=== PATIENT | female | born 1940 | race Caucasian/White ===

== ENCOUNTER 2016-12-31 12:32 | Outpatient (CLI) | payer MEDICARE, OTHER | END 2016-12-31 12:33 | disposition home or self-care (01) | DX: Z12.31 Encounter for screening mammogram for malignant neoplasm of breast (principal) ==

== ENCOUNTER 2017-01-28 11:09 | Outpatient (CLI) | payer MEDICARE, OTHER | END 2017-01-28 11:10 | disposition home or self-care (01) | DX: D64.9 Anemia, unspecified (principal); E03.9 Hypothyroidism, unspecified; I10 Essential (primary) hypertension; E78.5 Hyperlipidemia, unspecified; E11.9 Type 2 diabetes mellitus without complications ==

== ENCOUNTER 2017-04-21 14:10 | Outpatient (CLI) | payer MEDICARE, OTHER | END 2017-04-21 14:11 | disposition home or self-care (01) | LOC: LAB.R 14:10 | PROVIDERS: ATTEND Family Medicine | DX: R30.0 Dysuria (principal) | CPT/HCPCS: 87086 ==

== ENCOUNTER 2017-12-22 08:00 | Outpatient (CLI) | payer MEDICARE, OTHER ==
[2017-12-22 19:30] LABS: BASOPHILS # (AUTO) 0.1 10^3/uL (0.0-0.1); BASOPHILS % (AUTO) 0.8 %; EOSINOPHILS # (AUTO) 0.6 10^3/uL (0.0-0.7); EOSINOPHILS % (AUTO) 6.9 %; HGB - HEMOGLOBIN 12.2 g/dL (12.0-16.0); LYMPHOCYTES % (AUTO) 36.7 %; MEAN CORPUSCULAR HEMOGLOBIN 29.7 pg (27.0-31.0); MEAN CORPUSCULAR HGB CONC 32.4 g/dL (32.0-36.0); MEAN CORPUSCULAR VOLUME 91.6 fL (81.0-99.0); MEAN PLATELET VOLUME 8.1 fL (7.9-10.8); MONOCYTES # (AUTO) 0.6 10^3/uL (0.0-1.0); MONOCYTES % (AUTO) 7.1 %; NEUTROPHILS # (AUTO) 3.9 10^3/uL (1.5-6.6); NEUTROPHILS % (AUTO) 48.5 %; PLT - PLATELET COUNT 398 10^3/uL (130-450); RED BLOOD COUNT 4.12 10^6/uL (4.20-5.40); RED CELL DISTRIBUTION WIDTH 14.7 % (12.0-15.0); WHITE BLOOD COUNT 8.1 x10^3/uL (4.8-10.8)
[2017-12-22 19:53] LABS: THYROID STIMULATING HORMONE 5.94 uIU/mL (0.34-5.60)
[2017-12-22 21:17] LABS: FREE T4 (FREE THYROXINE) 0.92 ng/dL (0.58-1.64)
== END 2017-12-22 08:01 | disposition home or self-care (01) ==
LOC: LAB.WCP 08:00
PROVIDERS: ATTEND Family Medicine
DX: E03.9 Hypothyroidism, unspecified (principal); D64.9 Anemia, unspecified
CPT/HCPCS: 36415; 84439; 84443; 85025

== ENCOUNTER 2018-07-10 08:00 | Outpatient (CLI) | payer MEDICARE, OTHER ==
[2018-07-10 19:09] LABS: BASOPHILS # (AUTO) 0.1 10^3/uL (0.0-0.1); BASOPHILS % (AUTO) 2.1 %; EOSINOPHILS # (AUTO) 0.5 10^3/uL (0.0-0.7); EOSINOPHILS % (AUTO) 7.3 %; HGB - HEMOGLOBIN 12.5 g/dL (12.0-16.0); LYMPHOCYTES # (AUTO) 2.3 10^3/uL (1.5-3.5); MEAN CORPUSCULAR HEMOGLOBIN 31.1 pg (27.0-31.0); MEAN CORPUSCULAR VOLUME 94.4 fL (81.0-99.0); MEAN PLATELET VOLUME 7.8 fL (7.9-10.8); MONOCYTES # (AUTO) 0.4 10^3/uL (0.0-1.0); MONOCYTES % (AUTO) 6.2 %; NEUTROPHILS # (AUTO) 3.4 10^3/uL (1.5-6.6); NEUTROPHILS % (AUTO) 50.4 %; PLT - PLATELET COUNT 374 10^3/uL (130-450); RED BLOOD COUNT 4.02 10^6/uL (4.20-5.40); RED CELL DISTRIBUTION WIDTH 13.9 % (12.0-15.0); WHITE BLOOD COUNT 6.7 x10^3/uL (4.8-10.8)
[2018-07-10 20:05] LABS: HB2 TOTAL 13.4 g/dL; HEMOGLOBIN A1C 0.51 g/dL; HEMOGLOBIN A1C % 5.6 % (4.6-6.2)
[2018-07-10 20:26] LABS: ALBUMIN 4.1 g/dL (3.2-5.5); ALBUMIN/GLOBULIN RATIO 1.3 (1.0-2.2); ALKALINE PHOSPHATASE 46 IU/L (42-121); ALT ALANINE AMINOTRANSFERASE 21 IU/L (10-60); AST ASPARTATE AMINOTRANSFERASE 25 IU/L (10-42); BILIRUBIN,TOTAL 0.6 mg/dL (0.2-1.0); BUN - BLOOD UREA NITROGEN 17 mg/dL (6-20); CALCIUM 9.5 mg/dL (8.5-10.3); CARBON DIOXIDE - CO2 27 mmol/L (21-32); CHLORIDE 102 mmol/L (101-111); CHOL/HDL RATIO 3.1 (<4.4); CHOLESTEROL 257 mg/dL; CREATININE 0.5 mg/dL (0.4-1.0); GFR - MDRD 119 (>89); GLUCOSE 79 mg/dL (70-100); HDL CHOLESTEROL 82 mg/dL; LDL CHOLESTEROL,CALCULATED 160 mg/dL; SODIUM 135 mmol/L (135-145); TOTAL PROTEIN 7.3 g/dL (6.7-8.2); VLDL CHOLESTEROL 15 mg/dL
== END 2018-07-10 08:01 | disposition home or self-care (01) ==
LOC: LAB.WCP 08:00
PROVIDERS: ATTEND Family Medicine
DX: E78.5 Hyperlipidemia, unspecified (principal); E11.9 Type 2 diabetes mellitus without complications; E03.9 Hypothyroidism, unspecified; I10 Essential (primary) hypertension
CPT/HCPCS: 36415; 80053; 80061; 82043; 83036; 83721; 84443; 85025

== ENCOUNTER 2018-11-13 10:27 | Outpatient (CLI) | payer MEDICARE, OTHER | END 2018-11-13 23:59 | disposition home or self-care (01) | LOC: LAB.WCP 10:27 | PROVIDERS: ATTEND Family Medicine | DX: E03.9 Hypothyroidism, unspecified (principal) | CPT/HCPCS: 36415; 84443 ==

== ENCOUNTER 2019-01-11 08:00 | Outpatient (CLI) | payer MEDICARE, OTHER ==
[2019-01-11 19:00] LABS: BASOPHILS # (AUTO) 0.1 10^3/uL (0.0-0.1); EOSINOPHILS # (AUTO) 0.4 10^3/uL (0.0-0.7); EOSINOPHILS % (AUTO) 3.3 %; HGB - HEMOGLOBIN 10.5 g/dL (12.0-16.0); LYMPHOCYTES # (AUTO) 2.2 10^3/uL (1.5-3.5); LYMPHOCYTES % (AUTO) 18.7 %; MEAN CORPUSCULAR HEMOGLOBIN 31.1 pg (27.0-31.0); MEAN CORPUSCULAR HGB CONC 34.5 g/dL (32.0-36.0); MEAN CORPUSCULAR VOLUME 90.1 fL (81.0-99.0); MONOCYTES # (AUTO) 1.2 10^3/uL (0.0-1.0); MONOCYTES % (AUTO) 10.4 %; NEUTROPHILS # (AUTO) 7.8 10^3/uL (1.5-6.6); NEUTROPHILS % (AUTO) 66.6 %; PLT - PLATELET COUNT 483 10^3/uL (130-450); RED BLOOD COUNT 3.39 10^6/uL (4.20-5.40); RED CELL DISTRIBUTION WIDTH 13.8 % (12.0-15.0); WHITE BLOOD COUNT 11.7 x10^3/uL (4.8-10.8)
[2019-01-11 19:01] LABS: ALBUMIN 2.6 g/dL (3.2-5.5); ALBUMIN/GLOBULIN RATIO 0.7 (1.0-2.2); BILIRUBIN,TOTAL 0.8 mg/dL (0.2-1.0); CALCIUM 8.6 mg/dL (8.5-10.3); CREATININE 0.5 mg/dL (0.4-1.0); TOTAL PROTEIN 6.1 g/dL (6.7-8.2)
== END 2019-01-11 23:59 | disposition home or self-care (01) ==
LOC: LAB.R 08:00
PROVIDERS: ATTEND Physician Assistant
DX: J18.9 Pneumonia, unspecified organism (principal)
CPT/HCPCS: 80053; 85025

== ENCOUNTER 2019-01-12 10:54 | Outpatient (CLI) | payer MEDICARE, OTHER ==
--- NOTE | 2019-01-12 11:20 | XRAY Report ---
Reason: COUGH Procedure Date: 01/12/2019 Accession Number: [id number] / [id number] Procedure: WCP - Chest 2 View X-Ray CPT Code: 05474 FULL RESULT: EXAM: CHEST RADIOGRAPHY EXAM DATE: 01/12/2019 11:06 AM. CLINICAL HISTORY: COUGH. COMPARISON: None. TECHNIQUE: 2 views. FINDINGS: Lungs/Pleura: Mild posterior right lower lobe consolidation consistent with pneumonia. Lungs otherwise clear. Mediastinum: Heart and mediastinal contours are unremarkable. Other: Moderate S-shaped thoracolumbar scoliosis. IMPRESSION: Mild posterior right lower lobe consolidation most consistent with pneumonia. Consider follow-up examination in 3-4 weeks to ensure resolution. RADIA
== END 2019-01-12 10:55 | disposition home or self-care (01) ==
LOC: DI.WCP 10:54
PROVIDERS: ATTEND Physician Assistant
DX: J18.1 Lobar pneumonia, unspecified organism (principal)
CPT/HCPCS: 71046

== ENCOUNTER 2019-02-03 11:29 | Outpatient (CLI) | payer MEDICARE, OTHER ==
--- NOTE | 2019-02-03 15:02 | XRAY Report ---
Reason: PNEUMONIA Procedure Date: 02/03/2019 Accession Number: [id number] / [id number] Procedure: WCP - Chest 2 View X-Ray CPT Code: 50995 FULL RESULT: EXAM: CHEST RADIOGRAPHY EXAM DATE: 02/03/2019 11:40 AM. CLINICAL HISTORY: Pneumonia. COMPARISON: CHEST 2 VIEW 01/12/2019 10:48 AM. TECHNIQUE: 2 views. FINDINGS: Lungs/Pleura: No focal opacities evident. No pleural effusion. No pneumothorax. Normal volumes. Mediastinum: There is question of increasing fullness in the right hilar region on the lateral radiograph. The cardiac silhouette is unchanged in size. Other: None. IMPRESSION: No acute airspace disease is detected. Increasing fullness of the right hilar region, possibly adenopathy. RADIA
== END 2019-02-03 11:30 | disposition home or self-care (01) ==
LOC: DI.WCP 11:29
PROVIDERS: ATTEND Physician Assistant
DX: J18.9 Pneumonia, unspecified organism (principal)
CPT/HCPCS: 71046

== ENCOUNTER 2019-02-10 14:49 | Outpatient (CLI) | payer MEDICARE, OTHER ==
--- NOTE | 2019-02-11 10:02 | CT Report ---
Reason: LYMPHADENOPATHY Procedure Date: 02/10/2019 Accession Number: [id number] / [id number] Procedure: CT - CHEST WO CPT Code: FULL RESULT: EXAM: CT CHEST EXAM DATE: 02/10/2019 02:59 PM. CLINICAL HISTORY: Lymphadenopathy. COMPARISONS: CHEST 2 VIEW 02/03/2019 11:25 AM CHEST 2 VIEW 01/12/2019 10:48 AM. TECHNIQUE: Routine helical CT imaging was performed through the chest. IV contrast: None. Reconstructions: Coronal and sagittal. In accordance with CT protocol optimization, one or more of the following dose reduction techniques were utilized for this exam: automated exposure control, adjustment of mA and/or KV based on patient size, or use of iterative reconstructive technique. FINDINGS: Lungs/Pleura: Right lun. In the medial right lower lobe just posterior to the hilum, there is a 14 x 15 x 13 mm high density nodule. Reference series 4 image 34. 2. 4 mm semisolid nodule in the central right lower lobe, series 4 image 34. 3. 4 mm oval semisolid nodule, series 4 image 35, posterior right lower lobe. 4. Small amount of tree-in-bud type density in the inferior right lower lobe, series 4 image 45. Nonspecific wispy density in the posterior medial right lower lung, series 4 image 35. Recent infiltrate in the right lower lobe by chest x-ray 01/12/2019, largely resolved by chest x-ray 02/03/2019 is acknowledged. Left lung: No masses/nodules. No bronchial thickening or edema. Pulmonary vasculature is normal. No pericardial or pleural effusion. No pneumothorax. Mediastinum: Mild coronary artery calcium in the right coronary artery and left anterior descending coronary artery. No adenopathy or masses. The heart and great vessels are normal. Bones: Unremarkable. Visualized Abdomen: 1. Loop of stool-filled colon is superimposing anterior to the liver and anterior subdiaphragmatic region. 2. 2 subcentimeter exophytic low-density structures superior left kidney measuring simple fluid density likely incidental cysts. Other: None. IMPRESSION: 1. Multiple findings in the right lower lobe as described most significant for a 15 mm irregular nodule in the medial lower lobe just posterior to the hilum. Recent resolved right lower lobe infiltrate is acknowledged and findings today are nonspecific between residual changes of resolving infiltrate versus true pulmonary nodule/potential malignancy. Appropriate action is recommended. Consider short interval surveillance imaging with repeat CT in 8-12 weeks as an alternative to percutaneous biopsy. 2. No significant mediastinal or hilar adenopathy. RADIA
== END 2019-02-10 14:50 | disposition home or self-care (01) ==
LOC: DI 14:49
PROVIDERS: ATTEND Physician Assistant
DX: R91.8 Other nonspecific abnormal finding of lung field (principal)
CPT/HCPCS: 71250

== ENCOUNTER 2019-06-07 11:52 | Outpatient (CLI) | payer MEDICARE, OTHER ==
--- NOTE | 2019-06-08 16:52 | CT Report ---
Reason: PULMONARY NODULE Procedure Date: 06/07/2019 Accession Number: [id number] / [id number] Procedure: CT - CHEST WO CPT Code: FULL RESULT: EXAM: CT CHEST EXAM DATE: 06/07/2019 12:45 PM. CLINICAL HISTORY: PULMONARY NODULE. COMPARISONS: CHEST W/O 02/10/2019 2:59 PM. TECHNIQUE: Routine helical CT imaging was performed through the chest. IV contrast: None. Reconstructions: Coronal and sagittal. In accordance with CT protocol optimization, one or more of the following dose reduction techniques were utilized for this exam: automated exposure control, adjustment of mA and/or KV based on patient size, or use of iterative reconstructive technique. FINDINGS: Lungs/Pleura: Lung nodule: 1. Right lower lobe, 5 mm, image 32 of series 4, unchanged. The previously demonstrated right lower lobe lung nodules and tree-in-bud opacities are not identified on the current study. There is no focal infiltrate, pleural effusion or pneumothorax seen. Mediastinum: Visible but nonenlarged mediastinal lymph nodes are noted. There is atherosclerosis of the aorta and coronary arteries. Bones: There are degenerative changes of the thoracic spine. There is scoliosis thoracic spine convex to the right. Visualized Abdomen: The visualized upper abdominal organs demonstrate a normal noncontrast CT appearance. Other: None. IMPRESSION: Stable right lower lobe lung nodule. Interval resolution of the previously demonstrated right lower lobe lung nodules and tree-in-bud opacities. No new infiltrate. Atherosclerosis of the aorta and coronary arteries. RADIA
== END 2019-06-07 11:53 | disposition home or self-care (01) ==
LOC: DI 11:52
PROVIDERS: ATTEND Family Medicine
DX: R91.1 Solitary pulmonary nodule (principal); I70.0 Atherosclerosis of aorta
CPT/HCPCS: 71250

== ENCOUNTER 2019-08-31 09:57 | Outpatient (CLI) | payer MEDICARE, OTHER ==
[2019-08-31 10:46] LABS: BASOPHILS # (AUTO) 0.1 10^3/uL (0.0-0.1); BASOPHILS % (AUTO) 1.1 %; EOSINOPHILS # (AUTO) 0.5 10^3/uL (0.0-0.7); EOSINOPHILS % (AUTO) 4.9 %; HGB - HEMOGLOBIN 12.3 g/dL (12.0-16.0); LYMPHOCYTES # (AUTO) 2.6 10^3/uL (1.5-3.5); MEAN CORPUSCULAR HEMOGLOBIN 31.3 pg (27.0-31.0); MEAN CORPUSCULAR HGB CONC 32.9 g/dL (32.0-36.0); MEAN CORPUSCULAR VOLUME 95.2 fL (81.0-99.0); MEAN PLATELET VOLUME 9.2 fL (7.9-10.8); MONOCYTES # (AUTO) 0.7 10^3/uL (0.0-1.0); NEUTROPHILS # (AUTO) 5.4 10^3/uL (1.5-6.6); NEUTROPHILS % (AUTO) 57.7 %; PLT - PLATELET COUNT 372 10^3/uL (130-450); RED BLOOD COUNT 3.93 10^6/uL (4.20-5.40); RED CELL DISTRIBUTION WIDTH 13.2 % (12.0-15.0); WHITE BLOOD COUNT 9.3 x10^3/uL (4.8-10.8)
[2019-08-31 11:01] LABS: CALCIUM 9.6 mg/dL (8.5-10.3); CREATININE 0.7 mg/dL (0.4-1.0)
[2019-08-31 11:02] LABS: BILIRUBIN,URINE NEGATIVE (NEGATIVE); GLUCOSE, URINE (UA) NEGATIVE (NEGATIVE); KETONES,URINE (UA) NEGATIVE (NEGATIVE); LEUKOCYTE ESTERASE, URINE TRACE (NEGATIVE); NITRITE,URINE NEGATIVE (NEGATIVE); OCCULT BLOOD,URINE TRACE-LYSE (NEGATIVE); PROTEIN,URINE NEGATIVE (NEGATIVE); UROBILINOGEN,URINE 0.2 (NORMAL) E.U./dL (NORMAL)
[2019-08-31 11:08] LABS: HB2 TOTAL 12.5 g/dL; HEMOGLOBIN A1C 0.51 g/dL; HEMOGLOBIN A1C % 5.9 % (4.6-6.2)
[2019-08-31 11:19] LABS: CLARITY,URINE CLEAR (CLEAR)
[2019-08-31 11:22] LABS: RBC,URINE 0-5 /HPF (0-5)
[2019-08-31 11:23] LABS: BACTERIA,URINE Moderate /HPF (None Seen); MUCUS,URINE Few Strands; SQUAMOUS EPITHELIAL CELL,UR RARE Squamous (<= Few)
== END 2019-08-31 09:58 | disposition home or self-care (01) ==
LOC: LAB 09:57
PROVIDERS: ATTEND Orthopaedic Surgery
DX: Z01.818 Encounter for other preprocedural examination (principal); R73.9 Hyperglycemia, unspecified; N39.9 Disorder of urinary system, unspecified; Z13.1 Encounter for screening for diabetes mellitus
CPT/HCPCS: 36415; 80048; 81001; 81003; 83036; 85025; 87086; 87181; 93005

== ENCOUNTER 2019-10-08 12:35 | Outpatient (CLI) | payer MEDICARE, OTHER | END 2019-10-08 12:36 | disposition home or self-care (01) | LOC: LAB.N 12:35 | PROVIDERS: ATTEND Family Medicine | DX: E03.9 Hypothyroidism, unspecified (principal) | CPT/HCPCS: 36415; 84443 ==

== ENCOUNTER 2019-10-11 14:57 | Outpatient (CLI) | payer MEDICARE, OTHER ==
--- NOTE | 2019-10-12 03:35 | CT Report ---
Reason: PULMONARY NODULE Procedure Date: 10/11/2019 Accession Number: [id number] / [id number] Procedure: CT - CHEST WO CPT Code: Final Report FULL RESULT: EXAM: CT CHEST EXAM DATE: 10/11/2019 03:13 PM. CLINICAL HISTORY: PULMONARY NODULE. COMPARISONS: CHEST W/O 06/07/2019 12:36 PM CHEST W/O 02/10/2019 2:59 PM. TECHNIQUE: Routine helical CT imaging was performed through the chest. IV contrast: None. Reconstructions: Coronal and sagittal. In accordance with CT protocol optimization, one or more of the following dose reduction techniques were utilized for this exam: automated exposure control, adjustment of mA and/or KV based on patient size, or use of iterative reconstructive technique. FINDINGS: Lungs/Pleura: The small semisolid pulmonary in the right lower lobe contiguous with the pleura noted on series 6 image 55 is slightly more conspicuous when compared to the 2 prior studies. On the study from January 2019 this small lesion was approximately 3.7 mm. On the study from May 2019 this lesion was measured at 4.6 mm. The lungs are otherwise clear. There are no new nodules nor developing infiltrates. There are no pleural effusions. Mediastinum: Normal. No adenopathy or masses. The heart and great vessels are normal. There are atherosclerotic vascular coronary arteries. Bones: Unremarkable. Visualized Abdomen: Unremarkable. Other: None. IMPRESSION: 1. Slight, perceptible and measurable enlargement of the small nodule in the right posterior lower lobe. Particularly if the patient has significant risk factors this must be viewed with a relatively high degree of concern. RADIA
== END 2019-10-11 14:58 | disposition home or self-care (01) ==
LOC: DI 14:57
PROVIDERS: ATTEND Family Medicine
DX: R91.1 Solitary pulmonary nodule (principal)
CPT/HCPCS: 71250

== ENCOUNTER 2019-11-29 09:32 | Outpatient (CLI) | payer MEDICARE, OTHER ==
[2019-11-29 10:20] LABS: BASOPHILS # (AUTO) 0.1 10^3/uL (0.0-0.1); EOSINOPHILS # (AUTO) 0.8 10^3/uL (0.0-0.7); EOSINOPHILS % (AUTO) 8.2 %; HGB - HEMOGLOBIN 11.4 g/dL (12.0-16.0); LYMPHOCYTES # (AUTO) 2.4 10^3/uL (1.5-3.5); LYMPHOCYTES % (AUTO) 25.7 %; MEAN CORPUSCULAR HEMOGLOBIN 29.4 pg (27.0-31.0); MEAN CORPUSCULAR HGB CONC 31.3 g/dL (32.0-36.0); MEAN CORPUSCULAR VOLUME 93.8 fL (81.0-99.0); MEAN PLATELET VOLUME 9.1 fL (7.9-10.8); MONOCYTES # (AUTO) 0.6 10^3/uL (0.0-1.0); MONOCYTES % (AUTO) 6.3 %; NEUTROPHILS # (AUTO) 5.4 10^3/uL (1.5-6.6); NEUTROPHILS % (AUTO) 58.5 %; PLT - PLATELET COUNT 415 10^3/uL (130-450); RED BLOOD COUNT 3.88 10^6/uL (4.20-5.40); RED CELL DISTRIBUTION WIDTH 13.5 % (12.0-15.0); WHITE BLOOD COUNT 9.3 x10^3/uL (4.8-10.8)
== END 2019-11-29 09:33 | disposition home or self-care (01) ==
LOC: LAB 09:32
PROVIDERS: ATTEND Orthopaedic Surgery
DX: Z96.653 Presence of artificial knee joint, bilateral (principal)
CPT/HCPCS: 36415; 85025; 85651; 86140

== ENCOUNTER 2020-10-19 08:00 | Outpatient (CLI) | payer MEDICARE, OTHER ==
[2020-10-19 18:48] LABS: BASOPHILS # (AUTO) 0.1 10^3/uL (0.0-0.1); BASOPHILS % (AUTO) 0.9 %; EOSINOPHILS # (AUTO) 0.6 10^3/uL (0.0-0.7); HGB - HEMOGLOBIN 12.1 g/dL (12.0-16.0); LYMPHOCYTES # (AUTO) 2.8 10^3/uL (1.5-3.5); MEAN CORPUSCULAR HEMOGLOBIN 29.2 pg (27.0-31.0); MEAN CORPUSCULAR HGB CONC 30.6 g/dL (32.0-36.0); MEAN CORPUSCULAR VOLUME 95.4 fL (81.0-99.0); MEAN PLATELET VOLUME 9.7 fL (7.9-10.8); MONOCYTES # (AUTO) 0.7 10^3/uL (0.0-1.0); NEUTROPHILS # (AUTO) 5.4 10^3/uL (1.5-6.6); NEUTROPHILS % (AUTO) 56.8 %; PLT - PLATELET COUNT 399 10^3/uL (130-450); RED BLOOD COUNT 4.14 10^6/uL (4.20-5.40); WHITE BLOOD COUNT 9.6 x10^3/uL (4.8-10.8)
[2020-10-19 19:18] LABS: CREATININE,URINE 87.6 mg/dL
[2020-10-19 19:19] LABS: ALBUMIN 4.1 g/dL (3.2-5.5); ALBUMIN/GLOBULIN RATIO 1.2 (1.0-2.2); ALKALINE PHOSPHATASE 52 IU/L (42-121); ALT ALANINE AMINOTRANSFERASE 20 IU/L (10-60); AST ASPARTATE AMINOTRANSFERASE 21 IU/L (10-42); BILIRUBIN,TOTAL 0.7 mg/dL (0.2-1.0); BUN - BLOOD UREA NITROGEN 21 mg/dL (6-20); CALCIUM 10.1 mg/dL (8.5-10.3); CARBON DIOXIDE - CO2 28 mmol/L (21-32); CHLORIDE 101 mmol/L (101-111); CHOL/HDL RATIO 4.3 (<4.4); CHOLESTEROL 307 mg/dL; CREATININE 0.7 mg/dL (0.4-1.0); GLUCOSE 98 mg/dL (70-100); HDL CHOLESTEROL 72 mg/dL; LDL CHOLESTEROL,CALCULATED 218 mg/dL; TOTAL PROTEIN 7.5 g/dL (6.7-8.2); VLDL CHOLESTEROL 17 mg/dL
[2020-10-19 19:30] LABS: MICROALBUMIN,URINE < 0.2 mg/dL (0-300.0)
[2020-10-19 21:02] LABS: HEMOGLOBIN A1c% 6.1 % (4.27-6.07)
== END 2020-10-19 23:59 | disposition home or self-care (01) ==
LOC: LAB.WCP 08:00
PROVIDERS: ATTEND Internal Medicine
DX: E11.9 Type 2 diabetes mellitus without complications (principal)
CPT/HCPCS: 36415; 80053; 80061; 82043; 82570; 83036; 83721; 84443; 85025

== ENCOUNTER 2021-10-19 08:00 | Outpatient (CLI) | payer MEDICARE, OTHER ==
[2021-10-19 12:52] LABS: CALCIUM 9.6 mg/dL (8.5-10.3); CREATININE 0.6 mg/dL (0.4-1.0); POTASSIUM 3.9 mmol/L (3.5-5.0)
[2021-10-19 12:59] LABS: THYROID STIMULATING HORMONE 2.83 uIU/mL (0.34-5.60)
[2021-10-19 13:22] LABS: ESTIMATED AVERAGE GLUCOSE 134 mg/dL (70-100); HEMOGLOBIN A1c% 6.3 % (4.27-6.07)
== END 2021-10-19 23:59 | disposition home or self-care (01) ==
LOC: LAB.WCP 08:00
PROVIDERS: ATTEND Internal Medicine
DX: E11.9 Type 2 diabetes mellitus without complications (principal); E05.01 Thyrotoxicosis with diffuse goiter with thyrotoxic crisis or storm
CPT/HCPCS: 36415; 80048; 83036; 84443

== ENCOUNTER 2022-06-05 09:17 | Outpatient (CLI) | payer MEDICARE, OTHER ==
[2022-06-05 13:14] LABS: ALBUMIN 4.1 g/dL (3.2-5.5); ALBUMIN/GLOBULIN RATIO 1.2 (1.0-2.2); ALKALINE PHOSPHATASE 42 IU/L (42-121); ALT ALANINE AMINOTRANSFERASE 22 IU/L (10-60); AST ASPARTATE AMINOTRANSFERASE 22 IU/L (10-42); BILIRUBIN,TOTAL 0.7 mg/dL (0.2-1.0); BUN - BLOOD UREA NITROGEN 20 mg/dL (6-20); CARBON DIOXIDE - CO2 28 mmol/L (21-32); CHLORIDE 101 mmol/L (101-111); CHOLESTEROL 277 mg/dL; CREATININE 0.6 mg/dL (0.4-1.0); GFR - MDRD 96 (>89); GLUCOSE 100 mg/dL (70-100); HDL CHOLESTEROL 70 mg/dL; LDL CHOLESTEROL,CALCULATED 191 mg/dL; LDL/HDL RATIO 2.7 (<4.4); POTASSIUM 4.3 mmol/L (3.5-5.0); SODIUM 138 mmol/L (135-145); TOTAL PROTEIN 7.5 g/dL (6.7-8.2); TRIGLYCERIDES 82 mg/dL; VLDL CHOLESTEROL 16 mg/dL
[2022-06-05 13:22] LABS: MICROALBUM/CREATININE RATIO,UR 7.7 ug/mg (<30.0); MICROALBUMIN,URINE 0.3 mg/dL (0-300.0); THYROID STIMULATING HORMONE 1.35 uIU/mL (0.34-5.60)
[2022-06-05 13:45] LABS: ESTIMATED AVERAGE GLUCOSE 128 mg/dL (70-100); HEMOGLOBIN A1c% 6.1 % (4.27-6.07)
== END 2022-06-05 09:18 | disposition home or self-care (01) ==
LOC: LAB.N 09:17
PROVIDERS: ATTEND Internal Medicine
DX: E11.9 Type 2 diabetes mellitus without complications (principal); E78.5 Hyperlipidemia, unspecified; E05.01 Thyrotoxicosis with diffuse goiter with thyrotoxic crisis or storm
CPT/HCPCS: 36415; 80053; 80061; 82043; 82570; 83036; 83721; 84443

== ENCOUNTER 2023-02-18 12:34 | Outpatient (CLI) | payer MEDICARE, OTHER | END 2023-02-18 12:35 | disposition home or self-care (01) | LOC: DI 12:34 | PROVIDERS: ATTEND Internal Medicine | DX: R06.09 Other forms of dyspnea (principal); R53.83 Other fatigue; I51.7 Cardiomegaly | CPT/HCPCS: 93306 ==

== ENCOUNTER 2023-04-11 10:47 | Outpatient (CLI) | payer MEDICARE, OTHER ==
--- NOTE | 2023-04-11 11:39 | Sleep Patient Instructions ---
Sleep Center Visit Summary - Patient Visit Information Reason for Visit: Initial consult for evaluation of sleep disordered breathing and other sleep issues. - Patient Instructions Instructions Attached: Sleep Study, Sleep Clinic Visit Additional Instructions: You will be completing a sleep study, either an in-lab polysomnography (PSG) or home sleep study (HST). You will follow-up in the sleep care office after the sleep study is completed to hear the results and talk about therapy, if needed. You will be called by our office staff to schedule this appointment, but you may contact us with any questions. - Clinic Information Contact: [facility] [address] [place] [address] [email or web address] T: [phone]
--- NOTE | 2023-04-11 11:45 | SLEEP CARE CONSULTATION ---
Information from patient questionnaire entered by Florencia Champion. I have reviewed and concur with the information entered by Florencia Champion. This document represents the service I personally performed and the decisions made by me, Romina Lobo ARNP. History of Present Illness Service Date and Time: 04/11/2023 1047 Reason for Visit: New patient Chief Complaint: reports: Observed pauses in breathing, Fatigue Date of Onset: SNORING 25+YRS FATIGUE 2YRS Usual bedtime: 2200 Time it takes to fall asleep: 5 Snores at night: Yes Observed to quit breathing while asleep: Yes Sleeps alone due to snoring: No Number of times waking at night: 2 Reasons for waking at night: reports: Bathroom. denies: Choking, Snoring, Gasping for air Toss, Turn, or Twitch while sleeping: No Recalls having dreams: No Usually gets out of bed at: 0730 Feels refreshed in the morning: Yes Morning headache: No Sleepy or fatigued during the day: Yes Ever fallen asleep while driving: No Takes day naps: No (on if watches new at 5:30 PM or so) Dreams during day naps: No Prior sleep studies: No Additional HPI information: I had the pleasure of seeing SUSAN PACHECO today regarding the possibility of her having a sleep disorder. Her current complaints are snoring and fatigue. She states that she has been very tired lately and can't do as much as she used to. She states that they have done a lot of tests and not found any cause at this point. She has been snoring for many years and has had pauses in breathing noted by family. Her fatigue has come in in the last 2 years. She states it takes her a while to get moving in the morning, sometimes she is refreshed, it depends on prior day's activity. - Parasomnia Symptoms Ever been unable to move upon waking from sleep: No Walks in sleep: No Talks in sleep: No Ever acted out dreams in sleep: No Ever felt weak in the knees when startled or emotional: No Bothered by creepy, crawly, restless sensations in legs: No Problems with memory or concentration: Yes (memory, has reduce "point recall") Subjective Initial [place] Sleepiness Scale score: 2 (03/19/23) Past Medical History Past Medical History: reports: Hypertension, Arrythmia (atrial fibrillation (controlled), occasional pvcs), Hypothyroidism (hx of ablation), Other (PRE DIABETIC) Social History The patient's occupation is a RE. Patient is / and lives in . Have you smoked in the past 12 months: No Years of smokin Quit date: 1974 Alcohol use: Yes Alcohol amount and frequency: 1 BEER MAYBE 2 X MONTH Caffeine use: Yes Caffeine amount and frequency: 6 CUPS QD Family History Family history of sleep disordered breathing: Yes Family Hx Sleep Apnea: Father: Snoring, Sleep apnea - Untreated Allergies and Home Medications Known drug allergies: No (old medication - Darvon) Drug allergies reviewed: Yes Home medication list reviewed: Yes (see updated list in EMR) Allergy and home medication list: Allergies propoxyphene HCl * [From Darvon] Allergy (Verified 04/10/23 11:43) Unknown Review of Systems Weight loss over past 5 years: 5 Cardiovascular: reports: high blood pressure, irregular heart rate or pulse Respiratory: reports: wheeze Urinary: reports: incontinence, frequency, urgency Neurological: reports: gait or balance problems Ear/Nose/Throat: denies: tonsillectomy Endocrine: reports: thyroid disease Musculoskeletal: reports: mobility problems (use cane after Knee surgery) Immunologic: reports: sneezing, allergies to food or environment (seasonal) Physical Exam Vital signs obtained and entered by: FLORENCIA Pederson MA Blood Pressure: 126/74 (LEFT ARM) Cuff size: regular Heart Rate: 73 O2 Saturation: 99 Height: 5 ft 8 in Weight: 192 lb 12.8 oz Body Mass Index: 29.2 BMI Classification: Overweight Neck circumference: 17 Mouth and throat: narrow oropharynx Soft palate: normal Hard palate: normal Uvula: normal Uvula visualization: 50% Mallampati Class II Tongue: normal in size Tonsils: small Neck: normal w/o lymphadenopathy or thyromegaly Heart: regular rate and rhythm Lungs: clear bilaterally Impression and Plan 1. Suspected Obstructive Sleep Apnea-Hypopnea Syndrome, as suggested by a history of loud and irregular snoring, observed cessation of breath while asleep, unrefreshed sleep and cognitive impairment. Narrow oropharynx and obesity are common predisposing factors for obstructive sleep apnea-hypopnea syndrome. I recommend proceeding to polysomnography to confirm the diagnosis and to assess severity. If the patient has significant sleep disordered breathing, a manual CPAP titration study will also be performed to find the optimal treatment pressure. I informed the patient of what the sleep studies involve and after some discussion, obtained agreement to proceed. The pathophysiology of obstructive sleep apnea-hypopnea syndrome was discussed with the patient and health risks of cardiovascular and cerebrovascular disease if not treated. Risks of drowsy driving discussed in detail and patient advised to avoid long distance driving and to meat puller at the first sign of drowsiness. Patient agreed to plan. * Schedule polysomnography +- manual CPAP titration study and return in 1-2 weeks after the study to discuss result and initiate therapy. * Avoid long distance driving or driving when feeling sleepy. * Avoid alcohol, sedative and muscle relaxant around bedtime. * Attempt to lose weight. * Review instructions provided by trained office staff on how to prepare for the sleep study. * Return for follow-up after sleep study completed. Counseling Topics: Weight loss health impact Visit Type: In Office Time Spent with Patient (minutes): 35 Provider Statement: I spent 100% of the Face to Face Visit with the patient with greater than 50% spent counseling the patient and coordination of care.
[2023-04-11 11:50] VITALS: BP 126/74
== END 2023-04-11 10:48 | disposition home or self-care (01) ==
LOC: SC 10:47
PROVIDERS: ATTEND Nurse Practitioner Family
DX: R53.83 Other fatigue (principal); R06.83 Snoring; G47.8 Other sleep disorders; R06.81 Apnea, not elsewhere classified; I10 Essential (primary) hypertension; I48.91 Unspecified atrial fibrillation; E66.3 Overweight; Z68.29 Body mass index [BMI] 29.0-29.9, adult
CPT/HCPCS: 99203; G0463; 99212

== ENCOUNTER 2023-05-26 20:42 | Outpatient (CLI) | payer MEDICARE, OTHER | END 2023-05-26 20:43 | disposition home or self-care (01) | LOC: SC 20:42 | PROVIDERS: ATTEND Nurse Practitioner Family | DX: G47.33 Obstructive sleep apnea (adult) (pediatric) (principal); Z68.29 Body mass index [BMI] 29.0-29.9, adult | CPT/HCPCS: 95810 ==

== ENCOUNTER 2023-12-03 12:44 | Outpatient (CLI) | payer MEDICARE, OTHER ==
--- NOTE | 2023-12-03 13:16 | Sleep Patient Instructions ---
Sleep Center Visit Summary - Patient Visit Information Reason for Visit: Follow up to discuss treatment options - Patient Instructions Instructions Attached: CPAP Additional Instructions: You are being started on CPAP therapy with pressure setting at 4-15 cmH2O. You will need to call the sleep care office to set up your follow up once you have your APAP machine and we will schedule a visit to check compliance and response to therapy at that time. You may call the office with any concerns about pressure feeling too low or too much for adjustment, if needed. You should contact DME supplier for any questions or concerns about mask or equipment. Please call office to schedule a follow up appointment in the sleep care office one month after obtaining new device. - Clinic Information Contact: [facility] [address] [place] [address] [email or web address] T: [phone]
--- NOTE | 2023-12-03 13:21 | SLEEP CARE CONSULTATION ---
Information from patient questionnaire entered by Randa Champion. I have reviewed and concur with the information entered by Randa Champion. This document represents the service I personally performed and the decisions made by me, Romina Lobo ARNP. History of Present Illness Service Date and Time: 12/03/2023 1244 Previous diagnosis: Moderate, Obstructive Sleep Apnea-Hypopnea Syndrome AHI: 23.5 (04/2023) Reason for follow up: other (F/U TO DISCUSS OPTIONS) Prior sleep studies: No Type of Sleep Study: Polysomnography (COMPLETED 05/26/23) HPI additional information: SUSAN PACHECO was diagnosed to have moderate, AHI 23.5, obstructive sleep apnea-hypopnea syndrome and returned today for seven month follow-up. She said there was a delay in getting approval from insurance and she still has not received a CPAP. Sleep Study - Results Type of Sleep Study: Polysomnography (COMPLETED 05/26/23) Prior sleep studies: No Subjective Initial [place] Sleepiness Scale score: 2 (03/19/23) Allergies and Home Medications Known drug allergies: Yes (as listed) Drug allergies reviewed: Yes Home medication list reviewed: Yes (no changes) Allergy and home medication list: Allergies propoxyphene HCl * [From Darvon] Allergy (Verified 12/01/23 09:02) Unknown Review of Systems Review of systems same as previous: Yes (NO CHANGE ) Physical Exam Vital signs obtained and entered by: RANDA Pederson MA Blood Pressure: 141/78 (RIGHT ARM) Cuff size: regular Heart Rate: 76 O2 Saturation: 98 Height: 5 ft 8 in Weight: 194 lb 3.2 oz Body Mass Index: 29.5 BMI Classification: Overweight Impression and Plan 1. Obstructive Sleep Apnea-Hypopnea Syndrome, moderate. She returns the office to discuss her options for treatment. She had decided previously to go ahead with CPAP therapy but there was a delay and she was unable to get or start with CPAP. I will write another order to get her started and hope that we can just do an APAP trial rather than restarting with a another sleep study. I did go o alberto with her that there is possibility that we may have to order another study before we can move on with setting her up with the CPAP. She voiced understanding. The patient will be started on nasal autoCPAP therapy with pressure set at 4-15 cmH2O. Compliance guidelines also reviewed. A copy of compliance guidelines will be given for reference at check out. I also reviewed the benefit of consistent device use of CPAP for hypertension, arrhythmia and pre-diabetes. 2. Overweight, unspecified. Currently patients BMI is 29.5. Obesity increases the risk of apnea, CPAP pressure requirements and overall health risks especially cardiovascular and diabetes. Thus patient is advised to lose weight. * Nasal auto CPAP therapy, pressure at 4-15 cm H2O. * Attempt to lose weight. * Avoid alcohol consumption near bedtime. * Avoid supine sleep until using CPAP. * The patient is again cautioned about driving until sleepiness completely resolves. * Return one month after CPAP obtained. I will assess response to therapy and compliance at that time. Counseling Topics: Weight loss health impact Prescriptions: Auto CPAP Follow up with Sleep Care in: other (compliance visit) Visit Type: In Office Time Spent with Patient (minutes): 23 Provider Statement: I spent 100% of the Face to Face Visit with the patient with greater than 50% spent counseling the patient and coordination of care.
[2023-12-03 13:50] VITALS: BP 141/78; O2SAT 98
== END 2023-12-03 12:45 | disposition home or self-care (01) ==
LOC: SC 12:44
PROVIDERS: ATTEND Nurse Practitioner Family
DX: G47.33 Obstructive sleep apnea (adult) (pediatric) (principal); E66.3 Overweight; Z68.29 Body mass index [BMI] 29.0-29.9, adult
CPT/HCPCS: 99213; G0463; 99212

== ENCOUNTER 2024-03-12 11:30 | Outpatient (CLI) | payer MEDICARE, OTHER ==
--- NOTE | 2024-03-12 11:56 | Sleep Patient Instructions ---
Sleep Center Visit Summary - Patient Visit Information Reason for Visit: First compliance follow-up - Patient Instructions Additional Instructions: You were here for follow up of CPAP therapy. You will be continued on CPAP therapy with pressure at 10-12 cmH2O. Please let us know if the pressure change is uncomfortable and we can make further adjustments of the pressure. You should follow up with sleep care in 1-2 months. You may contact us sooner for any questions or concerns. - Clinic Information Contact: [facility] [address] [place] [address] [email or web address] T: [phone]
--- NOTE | 2024-03-12 12:02 | SLEEP CARE CONSULTATION ---
Information from patient questionnaire entered by Florencia Champion. I have reviewed and concur with the information entered by Florencia Champion. This document represents the service I personally performed and the decisions made by , Romina Lobo ARNP. History of Present Illness Service Date and Time: 03/12/2024 1130 Previous diagnosis: Moderate, Obstructive Sleep Apnea-Hypopnea Syndrome AHI: 23.5 (04/2023) Reason for follow up: first compliance Equipment type: CPAP (RESMED Airsense 11, s/u 12/22/2023) Equipment obtained from: Other ([facility]) Mask style: Full face Mask brand: Respironics (Dreamwear) Backup mask available: No Prior sleep studies: No Type of Sleep Study: Polysomnography (COMPLETED 05/26/23) HPI additional information: SUSAN PACHECO was diagnosed to have moderate, AHI 23.5, obstructive sleep apnea-hypopnea syndrome and returned today for CPAP therapy first compliance follow-up. Sleep Study - Results Type of Sleep Study: Polysomnography (COMPLETED 05/26/23) Prior sleep studies: No CPAP Compliance Data - Data Reviewed with Patient Average duration of nightly device use: 5 HRS 52 MINS Compliance rate %: 70 (01/10/24-02/08/24; 30/30 days used) Current pressure setting (cmH2O): 4-15 (median 7.1, avg 10.4, max 11.8) Average residual AHI: 5.7 (unknown 2.3) Central apnea: 0.4 Obstructive apnea: 1.4 Hypopnea: 1.5 Average large leak: 16.7 L/min Subjective Patient concerns: reports: mask discomfort (mask fit). denies: aerophagia, air blowing in eyes, mask leak noise, condensation in mask/hose, nasal congestion, dry mouth, nose, throat, epistaxis Observed to snore while using device: No Current pressure setting perceived as: comfortable On therapy, patient: reports: other (no big change with sleep quality or restlessness). denies: drowsiness while driving Initial [place] Sleepiness Scale score: 2 (03/19/23) Current [place] Sleepiness Scale score: 3 (03/12/24) Allergies and Home Medications Known drug allergies: Yes (as listed) Drug allergies reviewed: Yes Home medication list reviewed: Yes (no changes) Allergy and home medication list: Allergies propoxyphene HCl * [From Darvon] Allergy (Verified 03/10/24 16:06) Unknown Review of Systems Review of systems same as previous: No (COUGH) Physical Exam Vital signs obtained and entered by: FLORENCIA Pederson MA Blood Pressure: 151/76 (RIGHT ARM) Cuff size: regular Heart Rate: 62 O2 Saturation: 99 Height: 5 ft 8 in Weight: 191 lb 6.4 oz Body Mass Index: 29.0 BMI Classification: Overweight Impression and Plan 1. Obstructive Sleep Apnea-Hypopnea Syndrome, moderate, with good treatment compliance and fair apnea control with minimal elevation of residual AHI. She says she does not feel any difference with her sleep or restfulness. She will still fall asleep watching the news in evening. The patients pressure will be changed to autoCPAP 10-12 cmH20 for elevation of residual AHI. Patient advised to contact me if pressure change is uncomfortable so that it can be adjusted. Goals for apnea control discussed. She likes the mask that she has but she thinks that her cushion is too small. She is currently using a [employer] medium cushion fullface mask. She has contacted them but they are waiting for this appointment before she obtains more supplies. She gets some leaking around the sides of the mask which can wake her up and thinks it is because it is too small. Patient's apnea severity and rationale for treatment to reduce apnea, improve sleep quality and reduce cardiovascular and cerebrovascular events was reviewed. I also reviewed the benefit of consistent device use of CPAP for hypertension, arrhythmia, pre-diabetes. 2. Overweight, unspecified. Currently patients BMI is 29. Obesity increases the risk of apnea, CPAP pressure requirements and overall health risks especially cardiovascular and diabetes. Thus patient is advised to lose weight. * Change auto CPAP pressure to 10-12 cmH2O * Notify me if snoring with mask or feeling that the pressure is too much or too little * Attempt to lose weight * Call this office if any problems using CPAP * Return for follow up in 1-2 months, or sooner if concerns arise Adjust device pressure to (cmH2O): 10-12 Counseling Topics: Spare mask, Weight loss health impact Follow up with Sleep Care in: 1-2 months Visit Type: In Office Time Spent with Patient (minutes): 22 Provider Statement: I spent 100% of the Face to Face Visit with the patient with greater than 50% spent counseling the patient and coordination of care.
[2024-03-12 12:09] VITALS: BP 151/76; O2SAT 99
== END 2024-03-12 11:31 | disposition home or self-care (01) ==
LOC: SC 11:30
PROVIDERS: ATTEND Nurse Practitioner Family
DX: G47.33 Obstructive sleep apnea (adult) (pediatric) (principal); E66.3 Overweight; Z68.29 Body mass index [BMI] 29.0-29.9, adult
CPT/HCPCS: 99213; G0463; 99212

== ENCOUNTER 2024-03-12 14:19 | Outpatient (CLI) | payer MEDICARE, OTHER ==
--- NOTE | 2024-03-12 16:02 | XRAY Report ---
PROCEDURE: Chest 2V INDICATIONS: COUGH TECHNIQUE: 2 views of the chest were acquired. COMPARISON: 02/03/2019. FINDINGS: Surgical changes and devices: None. Lungs and pleura: No pleural effusions or pneumothorax. Minimal left basilar atelectasis. Mediastinum: Mediastinal contours appear normal. Heart size is normal. Bones and chest wall: No suspicious bony lesions. Overlying soft tissues appear unremarkable. IMPRESSION: Minimal left basilar atelectasis. No airspace consolidation. Reviewed by: Daniel Musa MD on 03/12/2024 4:00 PM PDT Approved by: Daniel Musa MD on 03/12/2024 4:00 PM PDT Station ID: [id number]
== END 2024-03-12 14:20 | disposition home or self-care (01) ==
LOC: DI 14:19
PROVIDERS: ATTEND Nurse Practitioner
DX: R05.9 Cough, unspecified (principal); J98.11 Atelectasis; G47.33 Obstructive sleep apnea (adult) (pediatric); E66.3 Overweight; Z68.29 Body mass index [BMI] 29.0-29.9, adult
CPT/HCPCS: 71046; 99213; G0463; 99212

== ENCOUNTER 2024-05-13 11:21 | Outpatient (CLI) | payer MEDICARE, OTHER ==
--- NOTE | 2024-05-13 12:20 | Sleep Patient Instructions ---
Sleep Center Visit Summary - Patient Visit Information Reason for Visit: 2-month follow-up - Patient Instructions Additional Instructions: You were here for follow up of CPAP therapy. You will be continued on CPAP therapy with pressure at 7-9 cmH2O. Please let us know if the pressure change is uncomfortable and we can make further adjustments of the pressure. Try the Resmed AirTouch F20, large cushion, mask. You should follow up with sleep care in 1-2 months. You may contact us sooner for any questions or concerns. - Clinic Information Contact: [facility] [address] [place] [address] [email or web address] T: [phone]
--- NOTE | 2024-05-13 12:29 | SLEEP CARE CONSULTATION ---
Information from patient questionnaire entered by Florencia Champion. I have reviewed and concur with the information entered by Florencia Champion. This document represents the service I personally performed and the decisions made by me, Romina Lobo ARNP. History of Present Illness Service Date and Time: 05/13/2024 1121 Previous diagnosis: Moderate, Obstructive Sleep Apnea-Hypopnea Syndrome AHI: 23.5 (04/2023) Equipment type: CPAP (RESMED Airsense 11, s/u 12/22/2023) Equipment obtained from: Other ([facility]; getting supplies) Mask style: Full face Backup mask available: No Last cushion change: 3 weeks Prior sleep studies: No Type of Sleep Study: Polysomnography (COMPLETED 05/26/23) HPI additional information: SUSAN PACHECO was diagnosed to have moderate, AHI 23.5, obstructive sleep apnea-hypopnea syndrome and returned today for CPAP therapy two month follow-up. Sleep Study - Results Type of Sleep Study: Polysomnography (COMPLETED 05/26/23) Prior sleep studies: No CPAP Compliance Data - Data Reviewed with Patient Average duration of nightly device use: 5 HRS 57 MINS Compliance rate %: 60 (03/11/24-05/09/24; 50/60 days used) Current pressure setting (cmH2O): 7-10 (avg 9.7, max 9.9) Average residual AHI: 8.3 (unknown 4.6) Central apnea: 0.2 Obstructive apnea: 1 Hypopnea: 2.4 Average large leak: 37.9 L/min Subjective Missed days of use due to: reports: mask issues (mask leaking and waking her up at night) Patient concerns: reports: mask discomfort, air blowing in eyes, mask leak noise. denies: aerophagia, condensation in mask/hose, nasal congestion, dry mouth, nose, throat, epistaxis Observed to snore while using device: No Current pressure setting perceived as: too high On therapy, patient: reports: sleeping better, more rested overall. denies: drowsiness while driving Initial [place] Sleepiness Scale score: 2 (03/19/23) Current [place] Sleepiness Scale score: 3 (05/13/24) Allergies and Home Medications Known drug allergies: No Drug allergies reviewed: Yes Home medication list reviewed: Yes (no changes) Allergy and home medication list: Allergies propoxyphene HCl * [From Darvon] Allergy (Verified 05/13/24 11:40) Unknown Review of Systems Review of systems same as previous: Yes (NO CHANGE) Physical Exam Vital signs obtained and entered by: FLORENCIA Pederson MA Blood Pressure: 132/79 (LEFT ARM) Cuff size: regular Heart Rate: 72 O2 Saturation: 97 Height: 5 ft 8 in Weight: 190 lb 6.4 oz Body Mass Index: 28.9 BMI Classification: Overweight Impression and Plan 1. Obstructive Sleep Apnea-Hypopnea Syndrome, moderate, with fair treatment compliance and fair apnea control with elevated residual AHI. On CPAP therapy, the patient has better sleep quality and is more rested overall. She says the pressure goes so high that she has to tighten her mask to an uncomfortable level sometimes. She feels the mask is not the right size. I fit her to a ResMed AirTouch F20 full face mask with a large cushion. She felt it did fit better than her other mask and I sent the sample home for her to try. I will also adjust her pressure to 7-9 cmH2O for patient comfort. The residual AHI is elevated but most of the index is unknown or hypopnea. Her average large leak is very elevated. She says she leaves the machine running when she is up to the bathroom at night. I advised her to turn it off when she gets up to the bathroom. I will have her come back in 1-2 months to recheck how she is doing and see if we need further adjustments of her pressure. Patient's apnea severity and rationale for treatment to reduce apnea, improve sleep quality and reduce cardiovascular and cerebrovascular events was reviewed. I also reviewed the benefit of consistent device use of CPAP for hypertension, arrhythmia and pre- diabetes. 2. Overweight, unspecified. Currently patients BMI is 28.9. Obesity increases the risk of apnea, CPAP pressure requirements and overall health risks especially cardiovascular and diabetes. Thus patient is advised to lose weight. * AirTouch F20, Large cushion * Change auto CPAP pressure to 7-9 cmH2O * Notify me if snoring with mask or feeling that the pressure is too much or too little * Attempt to lose weight * Call this office if any problems using CPAP * Return for follow up in 1-2 months, or sooner if concerns arise Mask provided: Yes Counseling Topics: Weight loss health impact Visit Type: In Office Time Spent with Patient (minutes): 29 Provider Statement: I spent 100% of the Face to Face Visit with the patient with greater than 50% spent counseling the patient and coordination of care.
[2024-05-13 12:30] VITALS: BP 132/79; O2SAT 97
== END 2024-05-13 11:22 | disposition home or self-care (01) ==
LOC: SC 11:21
PROVIDERS: ATTEND Nurse Practitioner Family
DX: G47.33 Obstructive sleep apnea (adult) (pediatric) (principal); E66.3 Overweight; Z68.28 Body mass index [BMI] 28.0-28.9, adult
CPT/HCPCS: 99214; G0463; 99212